=== PATIENT | male | born 1935 | race Caucasian/White ===

== ENCOUNTER → 2017-01-01 | Outpatient (CLI) | payer MEDICARE ==
--- NOTE | 2017-01-01 16:13 | RAD ---
Indication shortness of air. PA and lateral views of the chest were obtained. No prior imaging of the chest is available. Heart size and pulmonary vessels are normal. Slightly tortuous thoracic aorta is noted. There is no acute parenchymal infiltrate. Significant pleural fluid is not seen. There is no pneumothorax. IMPRESSION: No acute or focal process seen in the chest
== END | disposition home or self-care (01) ==
LOC: LAB 15:37
PROVIDERS: ATTEND Internal Medicine Critical Care Medicine
DX: R06.02 Shortness of breath (principal)
CPT/HCPCS: 71020

== ENCOUNTER → 2017-01-20 | Outpatient (CLI) | payer MEDICARE ==
[~2017-01-20] MED LIST: IOHEXOL 300 MG/ML 75 ML VIAL IV ONE
--- NOTE | 2017-01-20 09:51 | RAD ---
Indication chronic chest pain. Worse this morning. Contrast imaging through the chest was performed. Examination was tailored for the detection of pulmonary embolus. 75 cc of Omnipaque 300 was administered. MIP images were generated and reviewed. No prior CT imaging of the chest is available. Imaging through the upper abdomen shows no acute finding. There is mild splenomegaly. There is a small hiatus hernia. No significant finding is seen associated with the thoracic aorta. There is some coronary artery calcification. There are a few small mediastinal lymph nodes. These are likely incidental. No significant hilar adenopathy is seen. A few calcified right hilar lymph nodes are noted. The study is negative for pulmonary embolus. No acute parenchymal infiltrate is seen. There is no dominant soft tissue mass in either lung. There is a possible small soft tissue nodule or nonsolid parenchymal opacity in the right upper lobe, images 25 and 26 series 3. IMPRESSION: No acute finding seen in the chest. Negative study for pulmonary embolus. Possible small parenchymal opacity or nodule in the right upper lobe measuring 2- 3 mm Mild splenomegaly PQRS Compliance Statement: One or more of the following individualized dose reduction techniques were utilized for this examination: 1. Automated exposure control 2. Adjustment of the mA and/or kV according to patient size 3. Use of iterative reconstruction technique
--- NOTE | 2017-01-20 11:43 | CARD ---
APPROVED REPORT EXAM: Two-dimensional and M-mode echocardiogram with Doppler and color Doppler. Other Information Quality : GoodHR: 60bpm Rhythm : NSR INDICATION Dyspnea, R/o PHTN 2D DIMENSIONS RVDd4.1 (2.9-3.5cm)Left Atrium(2D)3.4 (1.6-4.0cm) IVSd0.8 (0.7-1.1cm)Aortic Root(2D)4.0 (2.0-3.7cm) LVDd4.6 (3.9-5.9cm)LVOT Diameter2.4 (1.8-2.4cm) PWd0.7 (0.7-1.1cm)LVDs2.7 (2.5-4.0cm) FS (%) 40.3 %SV69.3 ml LVEF(%)71.1 (>50%) Aortic Valve AoV Peak Jean.102.5cm/sAoV VTI25.5cm AO Peak GR.4.2mmHgLVOT Peak Jean.99.7cm/s AO Mean GR.3mmHgAVA (VMAX)4.53cm2 AI P 1/2 [id number] Mitral Valve MV E Rjngxwlv16.7cm/sMV E Peak Gr.2mmHg MV DECEL [id number] A Nedpbepl89.7cm/s MV E Mean Gr.1mmHgE/A Ratio1.1 MV A [id number] TDI Lateral E' P. V0.00cm/sE/Lateral E'0.0 Pulmonary Valve PV Peak Orlwodly48.8cm/s Tricuspid Valve TR P. Hossguhh698zx/sTR Peak Gr.24mmHg Pulmonary Vein S1 Jsqxfcfi31.1cm/sD2 Epotgfxc89.4cm/s PVa [id number] LEFT VENTRICLE The left ventricle is normal size. There is normal left ventricular wall thickness. The left ventricu lar systolic function is normal and the ejection fraction is within normal range. The Ejection Fracti on is 60-65%. There is normal LV segmental wall motion. The left ventricular diastolic function and f illing is normal for age. RIGHT VENTRICLE The right ventricle is normal size. There is normal right ventricular wall thickness. The right ventr icular systolic function is normal. ATRIA The left atrium size is normal. The right atrium size is normal. The interatrial septum is intact wit h no evidence for an atrial septal defect or patent foramen ovale as noted on 2-D or Doppler imaging. AORTIC VALVE The aortic valve is mildly sclerotic. Doppler and Color Flow revealed mild aortic regurgitation. Ther e is no significant aortic valvular stenosis. MITRAL VALVE The mitral valve leaflets are mildly thickened. There is no evidence of mitral valve prolapse. There is no mitral valve stenosis. Doppler and Color Flow revealed mild mitral regurgitation. TRICUSPID VALVE Doppler and Color Flow revealed mild tricuspid regurgitation. The pulmonary artery systolic pressure is estimated at 27 mmHg. There is no pulmonary hypertension. PULMONIC VALVE Doppler and Color Flow revealed no pulmonic valvular regurgitation. There is no pulmonic valvular you nosis. GREAT VESSELS The aortic root is normal in size. The ascending aorta is normal in size. The pulmonary artery is nor mal. The IVC is normal in size and collapses >50% with inspiration. PERICARDIAL EFFUSION There is no evidence of significant pericardial effusion. Critical Notification Critical Value: No <Conclusion> The left ventricular systolic function is normal and the ejection fraction is within normal range. Th e Ejection Fraction is 60-65%. There is normal LV segmental wall motion. Doppler and Color Flow revealed mild tricuspid regurgitation. The pulmonary artery systolic pressure is estimated at 27 mmHg. There is no pulmonary hypertension.
== END | disposition home or self-care (01) ==
LOC: CT 09:07
PROVIDERS: ATTEND Internal Medicine Critical Care Medicine
DX: I08.3 Combined rheumatic disorders of mitral, aortic and tricuspid valves (principal); R06.00 Dyspnea, unspecified; R16.1 Splenomegaly, not elsewhere classified
CPT/HCPCS: 71275; 93306; Q9967

== ENCOUNTER → 2017-01-27 | Outpatient (CLI) | payer MEDICARE, OTHER ==
--- NOTE | 2017-01-28 09:52 | CARD ---
APPROVED REPORT INDICATION Dyspnea Diabetes PROCEDURE The patient underwent an Exercise Stress Test using the Elijah Protocol. Blood pressure, heart rate, a nd EKG were monitored. An Echocardiogram was performed by installation and service technician in four stages in quad fashion. At peak stress four se lected images were obtained and placed side by side with resting images for comparison. STRESS ECHO FINDINGS The resting Echocardiogram showed normal left ventricular contractility with an estimated Ejection Fr action of about 60 %. Normal augmentation of myocardial wall segments using a 16 segment model. Test Type: Exercise Stress Nurse/Tech: Fany Meléndez R.N. Test Indications: SOA Cardiac History and Allergies: DM Medications: see ehr Medical History: see ehr Resting Heart Rate: 65 bpm Resting Blood Pressure: 125/51mmHg Pretest Chest Pain: No chest pain Nurse/Tech Notes S1S2, lungs CTA Stress Symptoms Dyspnea, Fatigue. POST EXERCISE Reason for Termination: Reached target heart rate Target HR: Yes Max HR: 144 bpm 103% of Maximum Predicted HR: 140 bpm Exercise duration: 6.31 min:sec, 3 Stage Exercise capacity: 7METs Max Blood Pressure: 151/40mmHg Blood Pressure response to exercise: Normal blood pressure response during stress. Heart Rate response to exercise: wnl Chest Pain: No. Arrhythmia: No. INTERPRETATION Stress EKG Conclusion: The resting EKG showed a sinus rhythm with nonspecific ST-T wave changes. Stress EKG showed flat ST segment depression in leads V3 through V6 with a maximum depression of 2 m m in V3. EKG changes with exertion suggestive but not diagnostic of ischemia. Preliminary Notification Critical Value: No <Conclusion> Good exercise tolerance. No chest pain with exertion. EKG changes with exertion that are suggestive but not diagnostic of ischemia. Normal LV systolic function at rest. Normal LV systolic response to exertion with no regional wall motion abnormalities and no echocardiog raphic evidence for ischemia. Moderate to moderately low risk treadmill echo stress test.
== END | disposition home or self-care (01) ==
LOC: ECHO 12:30
PROVIDERS: ATTEND Internal Medicine Cardiovascular Disease
DX: E11.8 Type 2 diabetes mellitus with unspecified complications (principal); R06.00 Dyspnea, unspecified
CPT/HCPCS: 93017; 93350

== ENCOUNTER 2018-10-25 03:37 | Emergency (ER) | payer MEDICARE, OTHER ==
[~2018-10-25] VITALS: Ht 177.8 cm; Wt 86.2 kg
[2018-10-25 03:47] VITALS: BP 160/71
[2018-10-25] MEDS ORDERED: HYDROcodone/APAP 5/325MG 1 TAB TABLET PO ONE (04:00)
[2018-10-25] MEDS ORDERED: predniSONE 10 MG TABLET PO ONE (04:00)
[2018-10-25] MEDS ORDERED: MELO7.5T29 PO (04:01)
[2018-10-25] MEDS ORDERED: HYDR-3164 PO (04:01)
[2018-10-25] MEDS ORDERED: PRED50TA PO (04:01)
--- NOTE | 2018-10-25 04:01 | PHYS DOC ---
Past Medical History Past Medical History: Diabetes-Type II, Other Additional Past Medical Histor: SHINGLES Past Surgical History: Other Additional Past Surgical Histo: HEMORRHOIDECTOMY, PENILE IMPLANT Alcohol Use: Occasionally Drug Use: None Adult General Chief Complaint Chief Complaint: SHINGLES HPI HPI Patient is a 83 year old male who presents with right-sided head pain. Patient was diagnosed with shingles several days ago and started on antivirals as well as gabapentin which is not relieving the discomfort. Nor is Aleve. Patient gets paroxysms of pain in the area of the rash. Nothing seems to make it that her or worse. There has been no nausea or vomiting. No change in vision. No change in hearing. No fever.[] Review of Systems Review of Systems Constitutional: Denies fever or chills [] Eyes: Denies change in visual acuity, redness, or eye pain [] HENT: Denies nasal congestion or sore throat [] Respiratory: Denies cough or shortness of breath [] Cardiovascular: No chest pain or palpitations[] GI: Denies abdominal pain, nausea, vomiting, bloody stools or diarrhea [] : Denies dysuria or hematuria [] Musculoskeletal: Denies back pain or joint pain [] Integument: See history of present illness[] Neurologic: Denies focal weakness or sensory changes, see history of present illness[] Endocrine: Denies polyuria or polydipsia [] All other systems were reviewed and found to be within normal limits, except as documented in this note. Current Medications Current Medications Current Medications Medications (Trade) Dose Ordered Sig/Brianne Start Time Stop Time Status Last Admin Dose Admin Acetaminophen/ Hydrocodone Bitart (Lortab 5/325) 1 tab 1X ONCE 10/25/18 04:00 10/25/18 04:01 UNV Prednisone (Prednisone) 50 mg 1X ONCE 10/25/18 04:00 10/25/18 04:01 UNV Allergies Allergies Allergies Coded Allergies Type Severity Reaction Last Updated Verified No Known Drug Allergies 01/20/17 No Physical Exam Physical Exam Constitutional: Well developed, well nourished, mild discomfort, non-toxic appearance. [] HENT: Normocephalic, atraumatic, bilateral external ears normal, oropharynx moist, no oral exudates, nose normal. [] Eyes: PERRLA, EOMI, conjunctiva normal, no discharge. [] Neck: Normal range of motion, no tenderness, supple, no stridor. [] Cardiovascular:Heart rate regular rhythm, no murmur [] Lungs & Thorax: Bilateral breath sounds clear to auscultation [] Abdomen: Not examined[] Skin: Warm, dry, no erythema, erythematous, papular rash in the forehead region on patient's right side of the head[] Back: No tenderness, no CVA tenderness. [] Extremities: No tenderness, no cyanosis, no clubbing, ROM intact, no edema. [] Neurologic: Alert and oriented X 3, normal motor function, normal sensory function, no focal deficits noted. [] Psychologic: Affect normal, judgement normal, mood normal. [] Current Patient Data Vital Signs Vital Signs Date Time Temp Pulse Resp B/P (MAP) Pulse Ox O2 Delivery O2 Flow Rate FiO2 10/25/18 03:47 97.7 75 20 160/71 (100) 98 Room Air 97.7 EKG EKG [] Radiology/Procedures Radiology/Procedures [] Course & Med Decision Making Course & Med Decision Making Pertinent Labs and Imaging studies reviewed. (See chart for details) Medical decision making: Patient appears to have varicella-zoster virus rash on the right side of his head. There does not appear to be a secondary infection. We will add prednisone and improved pain management.[] Dragon Disclaimer Dragon Disclaimer This electronic medical record was generated, in whole or in part, using a voice recognition dictation system. Departure Departure Impression: Primary Impression: Shingles Disposition: 01 HOME, SELF-CARE Condition: IMPROVED Referrals: Macy FERREIRA MD (PCP) Follow-up in 2 days Patient Instructions: Shingles Additional Instructions: Continue your current medication. Follow-up with your regular doctor in 2 days. Take the new medications as prescribed. Return to the ER if worsening discomfort or any other concerns. Scripts Prednisone (PREDNISONE) 50 Mg Tablet 50 MG PO DAILY for 7 Days, #7 TAB Prov: SHANITA ENRIQUE DO 10/25/18 Hydrocodone/Apap 5-325 (NORCO 5-325 TABLET) 1 Each Tablet 1-2 EACH PO PRN Q6HRS PRN for SEVERE PAIN, #15 as needed for pain Prov: SHANITA ENRIQUE DO 10/25/18 Meloxicam (MELOXICAM) 7.5 Mg Tablet 7.5 MG PO DAILY, #20 TAB Prov: SHANITA ENRIQUE DO 10/25/18 Problem Qualifiers Primary Impression: Shingles Herpes zoster complications: without complications Qualified Codes: B02.9 - Zoster without complications SHANITA ENRIQUE DO Oct 25, 2018 04:01
== END 2018-10-25 04:18 | disposition home or self-care (01) ==
LOC: ER 03:37
DX: B02.8 Zoster with other complications (principal); E11.9 Type 2 diabetes mellitus without complications
CPT/HCPCS: 99283; J7512